=== PATIENT | female | born 1985 | race Caucasian/White ===

== ENCOUNTER 2019-04-25 21:02 | Emergency (ER) | payer OTHER ==
[2019-04-25] MEDS ORDERED: diPHENhydraMINE IV* 50 MG/ML 1 ml VIAL (BENADRYL) IV ONE (21:27)
[2019-04-25] MEDS ORDERED: Famotidine IV* 10 MG/ML 2 ML (20 mg) IV SLOW PU ONE (21:27)
[2019-04-25] MEDS ORDERED: Dexamethasone IV* 4 MG/ML 1 ML (4 MG) IV SLOW PU ONE (21:27)
[2019-04-25 21:45] VITALS: BP 148/102
--- NOTE | 2019-04-25 21:47 | UC ---
UC General HPI - HPI Summary HPI Summary: 33-year-old female comes in with a chief complaint of sensation of left neck swelling his voice change. Patient reports that she woke up a couple hours ago with pain and swelling in the left side of her neck and feel like it's making it hard to breathe. She reports having had left-sided neck and shoulder pain for couple of days has gradually been getting worse. - History of Current Complaint Chief Complaint: UCGeneralIllness Stated Complaint: NECK/SHOULDER PAIN Time Seen by Provider: 04/25/19 21:21 Hx Last Menstrual Period: hysterectomy Pain Intensity: 7 - Allergy/Home Medications Allergies/Adverse Reactions: Allergies Allergy/AdvReac Type Severity Reaction Status Date / Time acetaminophen [From Vicodin] Allergy Hives Verified 04/25/19 21:19 hydrocodone [From Vicodin] Allergy Hives Verified 04/25/19 21:19 Home Medications: Home Medications Aspirin/Acetaminophen/Caffeine [Excedrin Migraine Caplet] 1 tab PO ONCE [History Confirmed 04/25/19] PMH/Surg Hx/FS Hx/Imm Hx Previously Healthy: Yes - Surgical History Surgical History: Yes Surgery Procedure, Year, and Place: hysterectomy. cholecystectomy. D&C. c- section x3. essure implant and removal - Family History Known Family History: Positive: Non-Contributory - Social History Alcohol Use: Occasionally Substance Use Type: None Smoking Status (MU): Former Smoker When Did the Patient Quit Smoking/Using Tobacco: december 2018 Review of Systems All Other Systems Reviewed And Are Negative: Yes Constitutional: Positive: Other - SEE HPI Skin: Positive: Negative Eyes: Positive: Negative ENT: Positive: Other - SEE HPI Respiratory: Positive: Shortness Of Breath Cardiovascular: Positive: Negative Gastrointestinal: Positive: Negative Motor: Positive: Negative Neurovascular: Positive: Negative Musculoskeletal: Positive: Other: - SEE HPI Neurological: Positive: Negative Psychological: Positive: Negative Is Patient Immunocompromised?: No Physical Exam Triage Information Reviewed: Yes Appearance: Well-Nourished, Other: - On initial examination patient appeared to be in mild pain. Her voice was slightly hoarse which she reports is new. Does not appear acutely ill. Mildly anxious. Vital Signs: Initial Vital Signs Temp 98.1 F 04/25/19 21:13 Pulse 105 04/25/19 21:13 Resp 18 04/25/19 21:13 BP 123/91 04/25/19 21:13 Pulse Ox 100 04/25/19 21:13 Vital Signs Reviewed: Yes Eye Exam: Normal Eyes: Positive: Conjunctiva Clear ENT: Positive: Pharyngeal erythema, Uvula midline Neck: Positive: Other: - Left side of the neck is mildly tender to palpation. Respiratory: Positive: Lungs clear, No respiratory distress Cardiovascular: Positive: Tachycardia Musculoskeletal: Positive: Strength Intact, ROM Intact Neurological: Positive: Alert Psychological: Positive: Age Appropriate Behavior Skin Exam: Normal Course/Dx - Course Course Of Treatment: Because of the patient reporting that the left side of her neck swelling and she was having a hard time breathing and her voice is changed an IV was placed patient was given Decadron 10 mg IV and Benadryl 50 mg IV and Pepcid 40 mg IV and patient was transported to the [facility] emergency department by ambulance. - Diagnoses Provider Diagnosis: Neck swelling Discharge ED - Sign-Out/Discharge Documenting (check all that apply): Patient Departure All imaging exams completed and their final reports reviewed: No Studies - Discharge Plan Condition: Stable Disposition: TRANS HIGHER LVL OF CARE FAC Referrals: Ronnie Perkins MD [Primary Care Provider] - - Billing Disposition and Condition Condition: STABLE Disposition: Trans Higher Lvl of Care Fac
== END 2019-04-25 21:40 | disposition short-term general hospital (02) ==
LOC: UCCORT 21:02
DX: R22.1 Localized swelling, mass and lump, neck (principal); Z87.891 Personal history of nicotine dependence
CPT/HCPCS: 96374; 96375; 99213; G0463; J1100; J1200

== ENCOUNTER 2019-06-29 16:52 | Emergency (ER) | payer OTHER ==
[2019-06-29 17:17] VITALS: BP 132/74
--- NOTE | 2019-06-29 17:43 | UC ---
UC General HPI - HPI Summary HPI Summary: 33-year-old female comes in with a chief complaint of left facial swelling and pain. Pain on the left chest and neck and face Started 2 days ago. Patient reports she was short of breath when she was having the chest pains. She's not having any chest pain right now. Today she noticed swelling in the left face and also tingling around the left orbit. No rash. She reported she was having fevers in the last 2 days but not today. Patient does have multiple dental caries and is getting teeth removed to get dentures. She denies any new dental problems. No complaint of left ear pain. - History of Current Complaint Chief Complaint: UCGeneralIllness Stated Complaint: LT SIDE FACIAL SWELLING,HEADACHE Time Seen by Provider: 06/29/19 17:26 Hx Last Menstrual Period: hysterectomy Pain Intensity: 8 - Allergy/Home Medications Allergies/Adverse Reactions: Allergies Allergy/AdvReac Type Severity Reaction Status Date / Time acetaminophen [From Vicodin] Allergy Hives Verified 06/29/19 17:10 hydrocodone [From Vicodin] Allergy Hives Verified 06/29/19 17:10 Home Medications: Home Medications Prazosin CAP* [Minipress CAP*] 1 mg PO BEDTIME 06/29/19 [History Confirmed 06/29] hydrOXYzine HCL TAB* [Atarax 25 MG TAB*] 25 mg PO TID PRN 06/29/19 [History Confirmed 06/29/19] lamoTRIgine TAB(*) [LaMICtal TAB(*)] 100 mg PO BEDTIME 06/29/19 [History Confirmed 06/29/19] PMH/Surg Hx/FS Hx/Imm Hx Previously Healthy: Yes - Surgical History Surgical History: Yes Surgery Procedure, Year, and Place: hysterectomy. cholecystectomy. D&C. c- section x3. essure implant and removal - Family History Known Family History: Positive: Non-Contributory - Social History Alcohol Use: Occasionally Substance Use Type: None Smoking Status (MU): Former Smoker When Did the Patient Quit Smoking/Using Tobacco: december 2018 Review of Systems All Other Systems Reviewed And Are Negative: Yes Constitutional: Positive: Fever, Other - SEE HPI Skin: Positive: Other - SEE HPI Eyes: Positive: Negative ENT: Positive: Sore Throat - Pain with swallowing on the left side but she is able to swallow., Other - SEE HPI Respiratory: Positive: Shortness Of Breath, Other - SEE HPI Cardiovascular: Positive: Chest Pain, Other - SEE HPI Gastrointestinal: Positive: Negative Motor: Positive: Negative Neurovascular: Positive: Negative Musculoskeletal: Positive: Other: - SEE HPI Neurological: Positive: Other - SEE HPI Psychological: Positive: Negative Is Patient Immunocompromised?: No Physical Exam Triage Information Reviewed: Yes Appearance: Well-Appearing, No Pain Distress, Well-Nourished Vital Signs: Initial Vital Signs Temp 98 F 06/29/19 17:04 Pulse 88 06/29/19 17:04 Resp 17 06/29/19 17:04 BP 132/74 06/29/19 17:04 Pulse Ox 100 06/29/19 17:04 Vital Signs Reviewed: Yes Eye Exam: Normal Eyes: Positive: Conjunctiva Clear. Negative: Conjunctiva Inflamed, Discharge ENT: Positive: Pharynx normal, TMs normal, Other - Patient's left cheek is swollen and tender to palpation. She has poor dentition throughout all of her teeth. No obvious specific source of dental infection. Ear canals were normal and nontender. Swelling is anterior to the parotid gland. Patient also has some tenderness in the left anterior neck. Neck: Positive: Supple Respiratory: Positive: Lungs clear, Normal breath sounds, No respiratory distress Cardiovascular: Positive: RRR Musculoskeletal: Positive: Strength Intact, ROM Intact Neurological: Positive: Alert, Muscle Tone Normal, Other: - No focal neurologic deficit. Psychological: Positive: Age Appropriate Behavior Skin: Positive: Other - There is no shingles rash apparent on the side of the face of the head. Left cheek is slightly erythematous in comparison to the right cheek. Course/Dx - Course Course Of Treatment: No shingles rash seen at this time no obvious dental infection. Because of the fevers and the chest pain and the pain into the left neck and face I recommended further evaluation in the emergency department now. Patient's plan to go the emergency department by POV. I did do a prescription for valacyclovir and her Augmentin to be used if after evaluation in the emergency department there was any shingles rash or dental infections apparent. - Diagnoses Provider Diagnosis: Swelling of left side of face, Left-sided face pain, Neck pain on left side, Left-sided chest pain Discharge ED - Sign-Out/Discharge Documenting (check all that apply): Patient Departure All imaging exams completed and their final reports reviewed: No Studies - Discharge Plan Condition: Stable Disposition: HOME-RECOMMEND TO ED Prescriptions: Amoxicillin/Clavulanate TAB* [Augmentin TAB 875*] 875 mg PO BID #20 tab Valacyclovir HCl [Valacyclovir] 1 gm PO TID #21 tab Patient Education Materials: Chest Pain (ED), Acute Neck Pain (ED), Atypical Facial Pain (ED) Referrals: Ronnie Perkins MD [Primary Care Provider] - Additional Instructions: GO DIRECTLY TO THE EMERGENCY DEPARTMENT FOR FURTHER EVALUATION AND CARE OF YOUR LEFT CHEST, NECK AND FACIAL PAIN AND LEFT FACIAL SWELLING. - Billing Disposition and Condition Condition: STABLE Disposition: Home-Recommend to ED
== END 2019-06-29 17:50 | disposition home health service (06) ==
LOC: UCCORT 16:52
DX: R22.0 Localized swelling, mass and lump, head (principal); R51 Headache; M54.2 Cervicalgia; R07.89 Other chest pain; J02.9 Acute pharyngitis, unspecified; R13.10 Dysphagia, unspecified; R06.02 Shortness of breath; Z88.8 Allergy status to other drugs, medicaments and biological substances; Z88.5 Allergy status to narcotic agent; Z87.891 Personal history of nicotine dependence
CPT/HCPCS: 99212; G0463